=== PATIENT | male | born 1940 | race Caucasian/White ===

== ENCOUNTER → 2020-12-16 | Outpatient (CLI) | payer MEDICARE ==
--- NOTE | 2020-12-18 17:27 | CT ---
EXAMINATION TYPE: CT lumbar spine wo con DATE OF EXAM: 12/16/2020 COMPARISON: None HISTORY: 80-year-old male M48.062, Spinal stenosis lumbar region. TECHNIQUE: Contiguous axial scanning of the lumbar spine without IV contrast. Coronal and sagittal re constructions performed. CT DLP: 1619.5 mGycm Automated exposure control for dose reduction was used. FINDINGS: Some scattered calcified pleural plaques are noted. Correlate for any history of prior asbestos expos ure. Exophytic fluid attenuating 2.7 cm lesion posterior left kidney suggesting a cyst. Additional smaller bilateral hypodense lesions are present, also likely cysts. Mild degenerative spurring at the left SI joint. Mild aneurysm of the aorta at the thoracoabdominal junction at 3.1 cm. Additional fusiform infrarenal abdominal aortic aneurysm at 3.1 cm, sagittal image 40. Chronic mild anterior wedging of L1 secondary to old superior endplate deformity. Slight retropulsion into the ventral spinal canal and a resultant focal kyphotic deformity here. There is DISH within the visualized lower thoracic and upper lumbar spine down to the L2 level. Bulky anterior endplate spondylosis L2-L3 and L3-L4. Strengths disease lower lumbar spine. Multilevel advanced hypertrophic facet arthropathy throughout. Degenerative grade 1 retrolisthesis L1-L2 and L2-L3 and grade 1 anterolisthesis L4-L5. Mild multilevel degenerative disc disease with variable mild disc space narrowing and disc bulging. Some ligamentum flavum thickening particularly at L3-L4 and L4-L5. There is mild overall spinal canal stenosis at the L1 level secondary to the chronic retropulsion. Possible moderate spinal canal stenosis at L3-L4 secondary to disc bulge and ligamentum flavum thicke josh. No blanche canal compromise. On the left, changes result in severe neuroforaminal stenosis at L5-S1, moderate to severe at L4-L5, and moderate at L2/L3 and L3-L4. On the right, changes result in moderate to severe neuroforaminal stenosis at L5-S1 and L2-L3. Modera te L3-L4 and L4-L5. IMPRESSION: 1. CHRONIC ANTERIOR WEDGE DEFORMITY OF L1 WITH MATURE CHANGES OF DISH IN THE VISUALIZED LOWER THORACI C SPINE DOWN TO THE L2 LEVEL. BULKY ANTERIOR ENDPLATE SPONDYLOSIS AT L2-L3 AND L3-L4. 2. MILD RETROPULSION INTO THE VENTRAL SPINAL CANAL AT L1 RELATED TO THE OLD ENDPLATE FRACTURE. THERE IS MILD OVERALL SPINAL CANAL STENOSIS HERE. 3. LIGAMENTUM FLAVUM FLAVUM THICKENING WITH ADVANCED HYPERTROPHIC FACET ARTHROPATHY SCATTERED THROUGH OUT. DEGENERATIVE GRADE 1 SPONDYLOLISTHESIS L1-L2, L2-L3, AND L4-L5. 4. POSSIBLE MODERATE OVERALL SPINAL CANAL STENOSIS AT L3-L4 SECONDARY TO LIGAMENTUM FLAVUM THICKENING AND DISC BULGE. 5. VARIABLE NEURAL FORAMINAL STENOSES, MODERATE TO SEVERE AT L4-L5 AND L5-S1, OUTLINED ABOVE. 6. MILD AORTIC ANEURYSM AT THE THORACOABDOMINAL ABDOMEN 3.1 CM. ADDITIONAL FUSIFORM INFRARENAL ABDOMI NAL AORTIC ANEURYSM MEASURING 3.1 CM.
== END | disposition home or self-care (01) ==
LOC: RADCTMAIN 13:29
PROVIDERS: ATTEND Physical Medicine & Rehabilitation
DX: M47.816 Spondylosis without myelopathy or radiculopathy, lumbar region (principal); M48.061 Spinal stenosis, lumbar region without neurogenic claudication; M43.16 Spondylolisthesis, lumbar region
CPT/HCPCS: 72131

== ENCOUNTER → 2021-11-28 | Outpatient (CLI) | payer MEDICARE ==
--- NOTE | 2021-11-29 13:21 | NM ---
EXAMINATION TYPE: NM bone scan whole body DATE OF EXAM: 11/28/2021 COMPARISON: CT lumbar spine 12/16/2020 HISTORY: Spinal stenosis, lumbar myelopathy Delayed whole-body scanning was performed following the injection of 24.5 mCi Tc 99m MDP. Images acq uired 3 hours post injection. FINDINGS: CT scan shows anterior wedge deformity at L1, corresponding uptake is present consistent with degener ative disc change within the lumbar spine. Bandlike area of uptake is also present at approximately t he T6 level. Uptake along the costovertebral angles is likely degenerative. Photopenic areas within t he knees consistent with prior knee arthroplasty. Uptake within the feet, ankles, hands and wrists, s houlders, sternoclavicular joints is likely degenerative. Soft tissue uptake is within normal limits. Uptake within the right hip greater than left is noted and likely degenerative. IMPRESSION: There may be a subacute osteoporotic compression fracture midthoracic spine, consider plain film zachariah elation. Additional findings above
== END | disposition home or self-care (01) ==
LOC: RADNMMAIN 10:40
PROVIDERS: ATTEND Physical Medicine & Rehabilitation
DX: M43.8X6 Other specified deforming dorsopathies, lumbar region (principal)
CPT/HCPCS: 78306; A9503